=== PATIENT | male | born 1955 | race Caucasian/White ===

== ENCOUNTER 2018-01-01 17:49 | Emergency (ER) | payer MEDICARE, OTHER ==
[~2018-01-01] VITALS: Ht 170.2 cm; Wt 76.7 kg
[~2018-01-01 17:49] MED LIST: ALBU17AE26 IH
[2018-01-01 18:06] VITALS: BP_SYST 110
--- NOTE | 2018-01-01 21:06 | NUR ---
Patient to ER bed 5 to gown for evaluation. Side rails up. Report given to GENET JESSICA.
--- NOTE | 2018-01-01 21:08 | NUR ---
Patient AAOx4, ambulatory. Patient states having a productive cough with difficulty breathing for approximately 3 days prior to ER visit. Patient denies chest pain at this time. Patient states cough has clear mucus. Patient denies abdominal pain, nausea, vomiting, and diarrhea at this time. Patient denies any other complaints.
--- NOTE | 2018-01-01 21:17 | NUR ---
ER Dr. Pizano at bedside examining patient.
[2018-01-01 21:22] VITALS: BP_SYST 114
--- NOTE | 2018-01-01 21:22 | NUR ---
Patient given written and verbal discharge instructions and verbalizes understanding. ER MD discussed with patient the results and treatment provided. Patient in stable condition. ID arm band removed. Rx of promethazine and proventil given. Patient educated on pain management and to follow up with PMD. Pain Scale 0/10. Opportunity for questions provided and answered.
== END 2018-01-01 21:22 | disposition home or self-care (01) ==
LOC: SED 17:49
DX: J06.9 Acute upper respiratory infection, unspecified (principal); J45.909 Unspecified asthma, uncomplicated; E11.9 Type 2 diabetes mellitus without complications; E78.00 Pure hypercholesterolemia, unspecified; Z95.0 Presence of cardiac pacemaker
CPT/HCPCS: 99283

== ENCOUNTER 2019-01-22 03:34 | Emergency (ER) | payer BC, OTHER ==
[~2019-01-22] VITALS: Ht 170.2 cm; Wt 79.4 kg
[2019-01-22 03:54] VITALS: BP_SYST 113
[2019-01-22 05:11] VITALS: BP_SYST 112
== END 2019-01-22 05:10 | disposition home or self-care (01) ==
LOC: SED 03:34
DX: J06.9 Acute upper respiratory infection, unspecified (principal); I50.9 Heart failure, unspecified; J45.909 Unspecified asthma, uncomplicated; E11.9 Type 2 diabetes mellitus without complications; E78.00 Pure hypercholesterolemia, unspecified
CPT/HCPCS: 99283

== ENCOUNTER 2019-07-02 12:09 | Emergency (ER) | payer BC, OTHER ==
[~2019-07-02] VITALS: Ht 170.2 cm; Wt 79.4 kg
[2019-07-02 12:16] VITALS: BP_SYST 123
--- NOTE | 2019-07-02 12:30 | NUR ---
Patient arrived via POV, AAOX4, and ambulatory with steady gait. Patient c/c of choking sensation while eating. He states no shortness of breath, able to speak in full sentences. He attempted to make himself vomit with no relief or vomiting. Patient states he feels like there is something just caught in his throat. History of GERD. Patient calm and cooperative. Will continue to follow up and monitor.
--- NOTE | 2019-07-02 12:30 | NUR ---
Patient to ER bed 1 to gown for evaluation. Side rails up. Assumed care.
--- NOTE | 2019-07-02 12:40 | NUR ---
ER at bedside examining patient.
--- NOTE | 2019-07-02 12:53 | NUR ---
Pt moved to bed 05
--- NOTE | 2019-07-02 12:53 | NUR ---
Patient refusing EKG at this time.
[2019-07-02] MEDS: LORazepam 2 MG/ML VIAL (FOR ER USE) IVP ONE (12:54)
[2019-07-02] MEDS: NACL 0.9% 1,000 ML IV ONE (12:54)
[2019-07-02 12:55] LABS: BASOPHILS % (AUTO) 0.7 % (0.0-2.0); EOSINOPHILS # (AUTO) 0.2 K/uL (0.0-0.4); EOSINOPHILS % (AUTO) 3.8 % (0.0-4.0); HEMATOCRIT 43.3 % (36-54); HEMOGLOBIN 14.6 g/dL (14.0-18.0); LYMPHOCYTES # (AUTO) 1.1 K/uL (1.0-5.5); LYMPHOCYTES % (AUTO) 23.3 % (20.5-51.5); MEAN CORPUSCULAR HEMOGLOBIN 32 pg (27-31); MEAN CORPUSCULAR HGB CONC 34 % (32-36); MEAN CORPUSCULAR VOLUME 96 fL (79.0-98.0); MONOCYTES # (AUTO) 0.4 K/uL (0.0-1.0); MONOCYTES % (AUTO) 8.8 % (1.7-9.3); NEUTROPHILS # (AUTO) 2.9 K/uL (1.8-7.7); NEUTROPHILS % (AUTO) 63.4 % (40.0-70.0); PLATELET COUNT (AUTO) 169 K/uL (130-430); RED BLOOD CELL COUNT(AUTO) 4.51 MIL/uL (4.2-6.2); RED CELL DISTRIBUTION WIDTH 13.3 % (9.0-15.0); WHITE BLOOD COUNT (AUTO) 4.5 K/uL (4.8-10.8)
--- NOTE | 2019-07-02 12:55 | NUR ---
Patient given ativan as ordered, patient refusing normal saline at this time.
[2019-07-02 13:03] LABS: CALCIUM 8.7 mg/dL (8.4-11.0); CREATININE 1.02 mg/dL (0.55-1.30); POTASSIUM 4.1 mmol/L (3.5-5.1)
[2019-07-02 13:07] LABS: PROTHROMBIN TIME 9.8 SECS (9.5-12.5)
[2019-07-02 13:08] LABS: ALBUMIN 3.6 g/dL (3.4-4.8); TOTAL BILIRUBIN 0.5 mg/dL (0.0-1.0)
--- NOTE | 2019-07-02 14:30 | NUR ---
PT ASLEEP EASILY AWAKEN, AT BEDSIDE AWAITING DISPO
[2019-07-02 14:36] VITALS: BP_SYST 127
--- NOTE | 2019-07-02 14:36 | NUR ---
PT A&OX3 DENIES ANY COMPLAINTS, PT ADVISED NOT TO DRIVE HIS CAR TODAY DUE TO THE MEDICATION GIVEN TO HIM. HE VERBALIZES UNDERSTANDING Patient given written and verbal discharge instructions and verbalizes understanding. ER MD discussed with patient the results and treatment provided. Patient in stable condition. ID arm band removed. IV catheter removed intact and dressing applied, no active bleeding. Rx of given. Patient educated on pain management and to follow up with PMD. Pain Scale 0/10. Opportunity for questions provided and answered. Medication side effect fact sheet provided.
== END 2019-07-02 14:36 | disposition home or self-care (01) ==
LOC: SED 12:09
DX: F45.8 Other somatoform disorders (principal); E78.00 Pure hypercholesterolemia, unspecified; J45.909 Unspecified asthma, uncomplicated; E11.9 Type 2 diabetes mellitus without complications
CPT/HCPCS: 36415; 71045; 80053; 82150; 82550; 83690; 84484; 85025; 85610; 85730; 96374; 99284; J2060

== ENCOUNTER 2019-08-19 23:52 | Emergency (ER) | payer BC, OTHER ==
[~2019-08-19] VITALS: Ht 170.2 cm; Wt 74.8 kg
[2019-08-19 23:54] VITALS: BP_SYST 105
[2019-08-20 03:52] VITALS: BP_SYST 105
== END 2019-08-20 03:52 | disposition home or self-care (01) ==
LOC: SED 23:52
DX: R05 Cough (principal); J45.909 Unspecified asthma, uncomplicated; E11.9 Type 2 diabetes mellitus without complications; E78.00 Pure hypercholesterolemia, unspecified; I50.9 Heart failure, unspecified
CPT/HCPCS: 71046-TC; 99283